=== PATIENT | female | born 2000 | race Caucasian/White ===

== ENCOUNTER 2024-02-17 10:15 | Outpatient (RCR) | payer OTHER, SELFPAY ==
[2024-02-10 08:35] VITALS: BP 124/68; PULSE 81; RESP 16; TEMP 35.3; BMI 38.4
--- NOTE | 2024-02-10 10:15 | PCM.WC.HP ---
History of Present Illness Date of Service: 02/10/24 Progress of Wound: Patient 1 month prior reports that she was bit by a spider while at work and 01/14/2024. Patient noticed increased swelling pain edema to the left forefoot region. Patient did not have any open wounds at this time. Patient has taken 2 courses of antibiotics. Patient notes significant improvement after completing 10-day course of Bactrim DS. Patient presents today for additional workup and evaluation. She denies any constitutional symptoms and notes that it is been improving at this time. [facility] Home Medications ?Medication ?Instructions ?Recorded ?Last Taken ?Type meloxicam 15 mg tablet 15 mg PO DAILY #30 tabs 02/10/24 Unknown Rx sulfamethoxazole 800 1 tab PO BID #14 tabs 02/10/24 Unknown Rx mg-trimethoprim 160 mg tablet (Bactrim DS) Social History (Reviewed 02/10/24 @ 10:[address] Zackery Gaines, [facility]) Smoking Status: Never smoker ROS Constitutional Constitutional: Denies body ache(s), change in weight or fever(s) Eyes Eyes: Denies acute decrease in peripheral vision, change in eye color or change in vision ENT HEENT: Denies abnormal hearing, bleeding gums or dysphagia Cardiovascular Cardiovascular: Denies abdominal bloating, abdominal edema or bluish discoloration of hand/feet Respiratory/Chest Respiratory/Chest: Denies change in mental status, change in phlegm color or difficulty clearing secretions Gastrointestinal Gastrointestinal: Denies anorexia, belching or coffee ground emesis Genitourinary Genitourinary: Denies abdominal discomfort, anuria or contractions Musculoskeletal Musculoskeletal: Denies arthralgias, atrophy or joint stiffness Vital Signs Vital Signs Vital Signs: 02/10/24 08:35 Temperature 95.5 F L Temperature Source Temporal Pulse Rate 81 Respiratory Rate 16 Blood Pressure 124/68 H Blood Pressure Mean 86 Blood Pressure Source Monitor Blood Pressure Position Semi-Fowlers Blood Pressure Location Left Arm Oxygen Delivery Method Room Air Weight Weight: 117.934 kg Body Mass Index (BMI) 38.4 Physical Exam Narrative Vascular: Dorsalis pedis posterior tibial pulses palpable 2 out of 4 to bilateral lower extremity. +1 pitting edema noted to left lower extremity. Focal swelling and erythema to left forefoot. Neurologic: Light touch protective sensation intact bilateral feet deep tendon reflexes normal to Achilles tendon bilaterally. No evidence of clonus or Babinski. Dermatologic: No evidence of wounds at this time there is focal erythema edema and warmth to the left second interspace with some skin exfoliation as demonstrated by scaling. No other signs of infection. Musculoskeletal: No gross deformities noted. Muscular strength full. No evidence DVT. Const alert and oriented x3 Debridement Note Debridement Note Post-Debridement Measurements and Additional Note: Post-Debridement Measurements/Treatment WC - Nurse 1 - General Ulcer Assessment Start: 02/10/24 08:35 Freq: Status: Active Protocol: DEZ Activity Type Activity Date Activity User E-sign Co-sign Detail Recorded Client Recorded Date Recorded By Document 02/10/24 08:35 KW l 02/10/24 08:50 KW 02/10/24 08:35 WC - Today's Visit Information Type of service Initial Visit Arrival Mode Ambulatory Accompanied by mother Patient Identification Verified (Name & Yes ) Height and Weight Height 5 ft 9 in Weight 117.934 kg Weight in Pounds 260.0 lbs Weight Measurement Method Estimated by Patient Body Mass Index (BMI) 38.4 BMI Classification Obese BSA - Fabian 2.31 Vital Signs Temperature (97.8 F-99.1 F) 95.5 F L Temperature Source Temporal Pulse Rate (60-100) 81 Pulse Location Monitor Respiratory Rate (12-18) 16 Respiratory rate source Observation Oxygen Delivery Method Room Air Blood Pressure (90/60-120/80) 124/68 H Blood Pressure Mean (mm Hg) 86 Source Monitor Position Semi-Fowlers Blood Pressure Location Left Arm History Since Last Visit- (Skip if this is Patient's initial visit) Left Footwear Regular Shoe Right Footwear Regular Shoe Pain Scale: 0-10 Numeric Is Patient Pain Free? No lt foot -Intensity 4 -Alleviating Factors/Interventions None Communication Assessment Preferred language Frisian Able to Read Yes Able to Write Yes Communication Tools None Caregiver Communication Skills No Impairment Impairment Right Hearing Abillity Normal Left Hearing Abillity Normal Visual Assistive Devices Glasses, Contacts Teaching Assessment Preferences Verbal,Written, Demonstration Barriers to Learning None Readiness To Learn Excellent Willingness to Engage in Self Management High Activies Readiness to Engage in Self Management High Activities Anxiety Level Calm Cooperation Cooperative Perception Coherent Interest in Health Problem Asks Questions Education Importance Acknowledges Need Does Patient Smoke tobacco or other Yes substances Smoking Status Never smoker Is Patient Diabetic No Functional Assessment Recent Decline in Ability to Perform Denies Any Declines Culture/Restoration/Charge Master Specialist Cultural/Restoration Needs that may affect No Treatment Plan Would you allow our hospital paraprofessional interpreter to No meet you for the purpose of spiritual/ emotional support? Charge Master Specialist to contact place of islam No WC - Nurse 1 - General Ulcer Measurement Start: 02/10/24 08:35 Freq: Status: Active Protocol: Activity Type Activity Date Activity User E-sign Co-sign Detail Recorded Client Recorded Date Recorded By Document 02/10/24 08:35 KW l 02/10/24 08:50 KW 02/10/24 08:35 Wound Center Nurse 1 Right Calf (cm) 46.5 Right Ankle (cm) 27 Left Calf (cm) 45 Left Ankle (cm) 26.7 WC - Nurse 2 - General Ulcer CM Notes Start: 02/10/24 08:35 Freq: Status: Active Protocol: Activity Type Activity Date Activity User E-sign Co-sign Detail Recorded Client Recorded Date Recorded By Document 02/10/24 09:21 JF 0000 02/10/24 09:22 JF 02/10/24 09:21 Pain Scale: 0-10 Numeric Is Patient Pain Free? Yes - Nurse 3 - General Ulcer D/C NN Start: 02/10/24 08:35 Freq: Status: Active Protocol: Activity Type Activity Date Activity User E-sign Co-sign Detail Recorded Client Recorded Date Recorded By Document 02/10/24 09:40 RB wound 02/10/24 09:41 RB 02/10/24 09:40 Wound Care Center Nurse 3 Left -Tubular Bandage Double Layer -Size of Tubigrip Used Size E -Size E ($) 4 Treatment Response Procedure Tolerated Well Pain Scale: 0-10 Numeric Is Patient Pain Free? Yes Teaching: Wound Center Compression Wraps & Stockings -Person Taught Patient -Teaching Method Discussion, Demonstration -Response to teaching Verbalize understanding WC - Visit Discharge Discharge Condition Stable Ambulatory Status Ambulatory Transportation Private Auto Medication Reconcilliation completed & No provided to patient/care provider Clinical Summary of Care Provided Yes Assessment/Plan Assessment/Plan (1) Cellulitis of left lower limb: CODE(S): L03.116 - Cellulitis of left lower limb PLAN: Exam performed Left foot cellulitis noted significantly improved likely secondary to spider bite. Continue Bactrim DS additional week. Rx for meloxicam to help with pain and swelling. Recommend Tubigrip to help manage edema as well. If no improvement next week consider MRI to rule out deep foreign body or deep abscess. Will request lab work and radiographs from [facility]. No weightbearing restrictions except for to tolerance follow-up in 1 week.
[2024-02-17 10:12] VITALS: BP 110/79; PULSE 92; RESP 18; TEMP 36.2; BMI 38.4
--- NOTE | 2024-02-17 10:38 | PCM.WC.PN ---
History of Present Illness Date of Service: 02/17/24 Progress of Wound: Patient 1 month prior reports that she was bit by a spider while at work and 01/14/2024. Patient noticed increased swelling pain edema to the left forefoot region. Patient did not have any open wounds at this time. Patient has taken 2 courses of antibiotics. Patient notes significant improvement after completing 10-day course of Bactrim DS. Patient presents today for additional workup and evaluation. She denies any constitutional symptoms and notes that it is been improving at this time. Objective Data Objective Data Vital Signs: Vital Signs Temp Pulse Resp BP O2 Del Method 97.1 F L 92 18 110/79 Room Air 02/17/24 10:12 02/17/24 10:12 02/17/24 10:12 02/17/24 10:12 02/17/24 10:12 Oxygen Delivery Method Room Air Weight: 117.934 kg Body Mass Index (BMI) 38.4 Physical Exam Narrative Vascular: Dorsalis pedis posterior tibial pulses palpable 2 out of 4 to bilateral lower extremity. +1 pitting edema noted to left lower extremity. Focal swelling and erythema to left forefoot. Neurologic: Light touch protective sensation intact bilateral feet deep tendon reflexes normal to Achilles tendon bilaterally. No evidence of clonus or Babinski. Dermatologic: No evidence of wounds at this time there is focal erythema edema and warmth to the left second interspace with some skin exfoliation as demonstrated by scaling. No other signs of infection. Musculoskeletal: No gross deformities noted. Muscular strength full. No evidence DVT. Const alert and oriented x3 Debridement Note Debridement Note Post-Debridement Measurements and Additional Note: Post-Debridement Measurements/Treatment - Nurse 1 - General Ulcer Assessment Start: 02/10/24 08:35 Freq: Status: Active Protocol: .LOWEXT Activity Type Activity Date Activity User E-sign Co-sign Detail Recorded Client Recorded Date Recorded By Document 02/10/24 08:35 KW l 02/10/24 08:50 KW Document 02/17/24 10:12 KW gj 02/17/24 10:15 KW 02/10/24 02/17/24 08:35 10:12 - Today's Visit Information Type of service Initial Visit Follow-up Visit (Physician/TRIMMER OPERATOR ) Arrival Mode Ambulatory Ambulatory Accompanied by mother Patient Identification Verified (Name & Yes Yes ) Height and Weight Height 5 ft 9 in Weight 117.934 kg Weight in Pounds 260.0 lbs Weight Measurement Method Estimated by Patient Body Mass Index (BMI) 38.4 38.4 BMI Classification Obese Obese BSA - Fabian 2.31 Vital Signs Temperature (97.8 F-99.1 F) 95.5 F L 97.1 F L Temperature Source Temporal Temporal Pulse Rate (60-100) 81 92 Pulse Location Monitor Monitor Respiratory Rate (12-18) 16 18 Respiratory rate source Observation Observation Oxygen Delivery Method Room Air Room Air Blood Pressure (90/60-120/80) 124/68 H 110/79 Blood Pressure Mean (mm Hg) 86 89 Source Monitor Monitor Position Semi-Fowlers Semi-Fowlers Blood Pressure Location Left Arm Left Arm History Since Last Visit- (Skip if this is Patient's initial visit) Have you changed medications since your No last visit? Any new allergies or adverse reactions No Had a fall/change in ADL's that may No increase risk of falls Signs or symptoms of abuse and/or No neglect since last visit Have you been in the hospital since your No last visit? Has dressing in place as prescribed Yes Has compression in place as prescribed No Has offloadiing in place as prescribed N/A Experienced any changes in pain level or No management Left Footwear Regular Shoe Regular Shoe Right Footwear Regular Shoe Regular Shoe Pain Scale: 0-10 Numeric Is Patient Pain Free? No Yes lt foot -Intensity 4 -Alleviating Factors/Interventions None Communication Assessment Preferred language Emirati Able to Read Yes Able to Write Yes Communication Tools None Caregiver Communication Skills No Impairment Impairment Right Hearing Abillity Normal Left Hearing Abillity Normal Visual Assistive Devices Glasses, Contacts Teaching Assessment Preferences Verbal,Written, Demonstration Barriers to Learning None Readiness To Learn Excellent Willingness to Engage in Self Management High Activies Readiness to Engage in Self Management High Activities Anxiety Level Calm Cooperation Cooperative Perception Coherent Interest in Health Problem Asks Questions Education Importance Acknowledges Need Does Patient Smoke tobacco or other Yes substances Smoking Status Never smoker Is Patient Diabetic No Functional Assessment Recent Decline in Ability to Perform Denies Any Declines Culture/Jehovah'S Witness/Sap Security Architect Cultural/Jehovah'S Witness Needs that may affect No Treatment Plan Would you allow our hospital division road supervisor to No meet you for the purpose of spiritual/ emotional support? Sap Security Architect to contact place of oriental orthodox No WC - Nurse 1 - General Ulcer Measurement Start: 02/10/24 08:35 Freq: Status: Active Protocol: Activity Type Activity Date Activity User E-sign Co-sign Detail Recorded Client Recorded Date Recorded By Document 02/10/24 08:35 KW l 02/10/24 08:50 KW Document 02/17/24 10:12 KW gj 02/17/24 10:15 KW 02/10/24 02/17/24 08:35 10:12 Wound Center Nurse 1 Right Calf (cm) 46.5 Right Ankle (cm) 27 Left Calf (cm) 45 45.7 Left Ankle (cm) 26.7 27 - Nurse 2 - General Ulcer CM Notes Start: 02/10/24 08:35 Freq: Status: Active Protocol: Activity Type Activity Date Activity User E-sign Co-sign Detail Recorded Client Recorded Date Recorded By Document 02/10/24 09:21 JF 0000 02/10/24 09:22 JF Document 02/17/24 10:25 JF 0000 02/17/24 10:27 JF 02/10/24 02/17/24 09:21 10:25 Pain Scale: 0-10 Numeric Is Patient Pain Free? Yes Yes - Nurse 3 - General Ulcer D/C NN Start: 02/10/24 08:35 Freq: Status: Active Protocol: Activity Type Activity Date Activity User E-sign Co-sign Detail Recorded Client Recorded Date Recorded By Document 02/10/24 09:40 RB wound 02/10/24 09:41 RB 02/10/24 09:40 Wound Care Center Nurse 3 Left -Tubular Bandage Double Layer -Size of Tubigrip Used Size E -Size E ($) 4 Treatment Response Procedure Tolerated Well Pain Scale: 0-10 Numeric Is Patient Pain Free? Yes Teaching: Wound Center Compression Wraps & Stockings -Person Taught Patient -Teaching Method Discussion, Demonstration -Response to teaching Verbalize understanding WC - Visit Discharge Discharge Condition Stable Ambulatory Status Ambulatory Transportation Private Auto Medication Reconcilliation completed & No provided to patient/care provider Clinical Summary of Care Provided Yes Assessment/Plan Assessment/Plan (1) Cellulitis of left lower limb: CODE(S): L03.116 - Cellulitis of left lower limb PLAN: Exam performed Left foot cellulitis noted significantly worsened today concern for deep abscess left forefoot MRI and ultrasound ordered to rule out deep infection ordered inflammatory lab work Continue Bactrim DS additional week. dispensed surgical shoe for heel weightbearing follow up in 1 week
--- NOTE | 2024-02-17 11:36 | RAD_ITS ---
INDICATION: CELLULITIS EXAMINATION/TECHNIQUE: X-RAY - LEFT XR Foot Min 3 Views 3 VIEWS COMPARISON: No relevant prior comparison study available FINDINGS: SOFT TISSUES: No soft tissue swelling or gas. No radiopaque foreign body. BONES/JOINTS: No acute fracture or subluxation.. Normal alignment. Preservation of the joint space.. No sclerotic or destructive changes observed. RAD/Foot min 3 Views IMPRESSION: Unremarkable examination. Electronically Signed: Kashif Lockhart MD at 11:53 EDT ,
[2024-02-17 11:51] LABS: Erythrocyte Sedimentation Rate 11 mm/hr (0-30)
[2024-02-17 11:53] LABS: Hematocrit 33.3 % (37-47); Hemoglobin 10.9 g/dL (12.0-15.0); Mean Corp Hgb Conc 32.7 g/dL (32-36); Mean Corpuscular Hgb 27.3 pg (27.0-32.0); Mean Corpuscular Volume 83.5 fL (81-99); Mean Platelet Vol. 10.9 fl (6.2-12.0); Platelet Count 217 K/mm3 (150-450); RBC Distribution Width SD 39.4 fl (35.1-43.9); Red Blood Count 3.99 M/mm3 (4.2-5.4); White Blood Count 5.6 K/mm3 (4.4-11.0)
[2024-02-17 12:24] LABS: Anion Gap 5 (5-15); BUN 19 mg/dL (7-18); BUN/Creat Ratio 20.5 RATIO (10-20); CRP 7.16 mg/L (0.0-3.0); Chloride 107 mmol/L (98-107); Creatinine, Serum 0.93 mg/dL (0.55-1.02); EST Glomerular Filtration Rate 81 mL/min (>60); Est Glom Filt Rate - Afr Amer 98 mL/min (>60); Estimated Creatinine Clearance 131.26 ml/min; Glucose 95 mg/dL (74-106); Potassium 4.5 mmol/L (3.5-5.1); Rheumatoid Factor < 10.0 IU/mL (<15); Sodium Level 139 mmol/L (136-145)
[2024-02-18 10:09] LABS: ANTINUCLEAR ANTIBODIES DIRECT Negative (Negative)
--- NOTE | 2024-02-18 10:48 | WC ---
PHOTO (I) 2ND AND THIRD TOE 02/10/24
--- NOTE | 2024-02-20 08:56 | WC ---
PHOTO 02/17/24 LEFT FOOT
== END 2024-02-18 23:59 | disposition home or self-care (01) ==
LOC: WC 10:15
PROVIDERS: PCP Nurse Practitioner Family; Referring Provider Nurse Practitioner Family; Visit Provider Podiatrist
DX: L03.116 Cellulitis of left lower limb (principal)
CPT/HCPCS: 36415; 73630; 80048; 85027; 85652; 86038; 86140; 86431; 99203; 99213; G0463

== ENCOUNTER → 2024-03-01 | Outpatient (CLI) | payer OTHER, SELFPAY ==
--- NOTE | 2024-03-01 08:09 | US_ITS ---
STUDY: SUPERFICIAL ULTRASOUND - LEFT FOOT REASON FOR EXAM: Female, 23 years old. CELLULITIS LL LIMB TECHNIQUE: A superficial ultrasound was performed with real-time and static tapia-scale imaging. COMPARISON: None. FINDINGS: Multiple longitudinal and transverse ultrasound images of the dorsum of the foot do not demonstrate a discrete solid or cystic mass. US/Ext Non Vasc Limited/Soft Tiss IMPRESSION: Normal left foot. Electronically Signed: Con Salazar MD at 10:16 EDT ,
== END | disposition home or self-care (01) ==
PROVIDERS: PCP Nurse Practitioner Family; Referring Provider Podiatrist; Visit Provider Podiatrist
DX: L03.116 Cellulitis of left lower limb (principal)
CPT/HCPCS: 76882

== ENCOUNTER 2024-03-02 08:00 | Outpatient (RCR) | payer OTHER, SELFPAY ==
[2024-02-19 00:54] VITALS: BP 110/79; PULSE 92; RESP 18; TEMP 36.2; BMI 38.4
[2024-02-24 08:15] VITALS: BP 107/66; PULSE 73; RESP 18; TEMP 35.8; BMI 38.4
--- NOTE | 2024-02-24 09:42 | WC ---
PHOTO 02/24/24 LEFT 2ND AND 3RD TOES
--- NOTE | 2024-02-24 10:32 | PCM.WC.PN ---
History of Present Illness Date of Service: 02/24/24 Chief Complaint: Left second toe pain and swelling Subjective Subjective Patient 1 month prior reports that she was bit by a spider while at work and 01/14/2024. Patient noticed increased swelling pain edema to the left forefoot region. Patient did not have any open wounds at this time. Patient has taken 2 courses of antibiotics. Patient notes significant improvement after completing 10-day course of Bactrim DS. Patient presents today for additional workup and evaluation. She denies any constitutional symptoms and notes that it is been improving at this time. Courtesy visit for Dr. Gaines. Today there is minimal erythema. There continues to be some slight swelling. 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 She is still waiting for ultrasound and MRI to be approved by insurance. Her biggest concern right now is that she needs to return to college in the next couple weeks and she would like to have the testing done before then. Objective Data Objective Data Vital Signs: Vital Signs Temp Pulse Resp BP O2 Del Method 96.4 F L 73 18 107/66 Room Air 02/24/24 08:15 02/24/24 08:15 02/24/24 08:15 02/24/24 08:15 02/24/24 08:15 Oxygen Delivery Method Room Air Weight: 260 lb Body Mass Index (BMI) 38.4 Lab / Micro Data Attestation: I reviewed the patient's lab results. Charges/Coding Visit Charges Office Visits / Consults: 38823 OV L3 Est 20min Physical Exam Const alert and oriented x3 HEENT normocephalic Head and Scalp: atraumatic Eyes General Eye: normal appearance of both eyes Resp normal respiratory effort and no use of accessory muscles Effort and Inspection: able to speak in complete sentences Cardio regular rate and regular rhythm Extremity normal capillary refill Extremity Narrative: +2 pedal pulses palpable on the left. Skin Skin Narrative: No wounds present. Left second toe continues to have some swelling. Erythema is almost completely resolved. Neuro CN's II-XII intact bilaterally Debridement Note Debridement Note No debridement was completed: No debridement was completed today Post-Debridement Measurements and Additional Note: Post-Debridement Measurements/Treatment WC - Nurse 1 - General Ulcer Assessment Start: 02/24/24 08:15 Freq: Status: Active Protocol: WC.LOWEXT Activity Type Activity Date Activity User E-sign Co-sign Detail Recorded Client Recorded Date Recorded By Document 02/24/24 08:15 KW kl 02/24/24 08:18 KW 02/24/24 08:15 - Today's Visit Information Type of service Follow-up Visit (Physician/SUPERVISOR DISPLAY FABRICATION ) Arrival Mode Ambulatory Accompanied by mother Patient Identification Verified (Name & Yes ) Height and Weight Body Mass Index (BMI) 38.4 BMI Classification Obese Vital Signs Temperature (97.8 F-99.1 F) 96.4 F L Temperature Source Temporal Pulse Rate (60-100) 73 Pulse Location Monitor Respiratory Rate (12-18) 18 Respiratory rate source Observation Oxygen Delivery Method Room Air Blood Pressure (90/60-120/80) 107/66 Blood Pressure Mean (mm Hg) 79 Source Monitor Position Sitting Blood Pressure Location Left Arm History Since Last Visit- (Skip if this is Patient's initial visit) Have you changed medications since your No last visit? Any new allergies or adverse reactions No Had a fall/change in ADL's that may No increase risk of falls Signs or symptoms of abuse and/or No neglect since last visit Have you been in the hospital since your No last visit? Has dressing in place as prescribed Yes Has compression in place as prescribed No Has offloadiing in place as prescribed N/A Experienced any changes in pain level or No management Left Footwear Regular Shoe Right Footwear Regular Shoe Pain Scale: 0-10 Numeric Is Patient Pain Free? Yes - Nurse 2 - General Ulcer CM Notes Start: 02/24/24 08:15 Freq: Status: Active Protocol: Activity Type Activity Date Activity User E-sign Co-sign Detail Recorded Client Recorded Date Recorded By Document 02/24/24 08:30 JF 0000 02/24/24 08:30 JF 02/24/24 08:30 Is Patient Pain Free? Yes - Nurse 3 - General Ulcer D/C NN Start: 02/24/24 08:15 Freq: Status: Active Protocol: Activity Type Activity Date Activity User E-sign Co-sign Detail Recorded Client Recorded Date Recorded By Document 02/24/24 08:34 JF 0000 02/24/24 08:35 JF 02/24/24 08:34 Wound Care Center Nurse 3 Left -Tubular Bandage Single Layer -Size of Tubigrip Used Size E -Size E ($) 0 Pain Scale: 0-10 Numeric Is Patient Pain Free? Yes Teaching: Wound Center Control Swelling with Leg Elevation -Person Taught Patient -Teaching Method Discussion, Demonstration -Response to teaching Return Demonstration, Verbalize Understanding Compression Wraps & Stockings -Person Taught Patient -Teaching Method Discussion, Demonstration -Response to teaching Return Demonstration, Verbalize Understanding WC - Visit Discharge Discharge Condition Stable Ambulatory Status Ambulatory Transportation Private Auto Accompanied by mother Medication Reconcilliation completed & Yes provided to patient/care provider Clinical Summary of Care Provided Yes Assessment/Plan Assessment/Plan (1) Cellulitis of left lower limb: CODE(S): L03.116 - Cellulitis of left lower limb PLAN: This was a courtesy visit for Dr. Gaines today. Left foot cellulitis has improved. She continues to have mild swelling. Erythema is almost completely resolved. Dr. Gaines has concern for deep abscess left forefoot MRI and ultrasound ordered to rule out deep infection. Still waiting for approval for insurance. Her lab work was reviewed with her. Her C-reactive protein is 7.16. WBC is 5.6. Rheumatoid factor is less than 10, OBEY is negative. She has almost completed her Bactrim DS. Encouraged her to wear Tubigrip for compression. 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 She has a surgical shoe for heel weightbearing which she is not wearing. She has been wearing crocs. follow up in [address] Gaines.
[2024-03-02 08:18] VITALS: BP 114/58; PULSE 71; RESP 18; TEMP 36.1; BMI 38.4
--- NOTE | 2024-03-02 09:10 | PCM.WC.PN ---
History of Present Illness Date of Service: 03/02/24 Chief Complaint: Left second toe pain and swelling Progress of Wound: Improved swelling pain and redness to left forefoot. Patient here for ultrasound results. Patient no longer on antibiotics. Objective Data Objective Data Vital Signs: Vital Signs Temp Pulse Resp BP O2 Del Method 97 F L 71 18 114/58 L Room Air 03/02/24 08:18 03/02/24 08:18 03/02/24 08:18 03/02/24 08:18 03/02/24 08:18 Oxygen Delivery Method Room Air Weight: 117.934 kg Body Mass Index (BMI) 38.4 Physical Exam Narrative Vascular: Dorsalis pedis posterior tibial pulses palpable 2 out of 4 to bilateral lower extremity. +1 pitting edema noted to left lower extremity. Focal swelling and erythema to left forefoot. Neurologic: Light touch protective sensation intact bilateral feet deep tendon reflexes normal to Achilles tendon bilaterally. No evidence of clonus or Babinski. Dermatologic: No evidence of wounds at this time there is focal erythema edema and warmth to the left second interspace with some skin exfoliation as demonstrated by scaling. No other signs of infection. Musculoskeletal: No gross deformities noted. Muscular strength full. No evidence DVT. Const alert and oriented x3 Debridement Note Debridement Note Post-Debridement Measurements and Additional Note: Post-Debridement Measurements/Treatment - Nurse 1 - General Ulcer Assessment Start: 02/24/24 08:15 Freq: Status: Active Protocol: .LOWEXT Activity Type Activity Date Activity User E-sign Co-sign Detail Recorded Client Recorded Date Recorded By Document 02/24/24 08:15 KW kl 02/24/24 08:18 KW Document 03/02/24 08:18 [place] [id number] 03/02/24 08:20 MT 02/24/24 03/02/24 08:15 08:18 - Today's Visit Information Type of service Follow-up Visit Follow-up Visit (Physician/SWITCHBOARD RECEPTIONIST (Physician/SWITCHBOARD RECEPTIONIST ) ) Arrival Mode Ambulatory Ambulatory Accompanied by mother mom Patient Identification Verified (Name & Yes Yes ) Height and Weight Body Mass Index (BMI) 38.4 38.4 BMI Classification Obese Obese Vital Signs Temperature (97.8 F-99.1 F) 96.4 F L 97 F L Temperature Source Temporal Temporal Pulse Rate (60-100) 73 71 Pulse Location Monitor Monitor Respiratory Rate (12-18) 18 18 Respiratory rate source Observation Observation Oxygen Delivery Method Room Air Room Air Blood Pressure (90/60-120/80) 107/66 114/58 L Blood Pressure Mean (mm Hg) 79 76 Source Monitor Monitor Position Sitting Sitting Blood Pressure Location Left Arm Left Arm History Since Last Visit- (Skip if this is Patient's initial visit) Have you changed medications since your No last visit? Any new allergies or adverse reactions No Had a fall/change in ADL's that may No increase risk of falls Signs or symptoms of abuse and/or No neglect since last visit Have you been in the hospital since your No last visit? Has dressing in place as prescribed Yes Has compression in place as prescribed No Has offloadiing in place as prescribed N/A Experienced any changes in pain level or No management Left Footwear Regular Shoe Regular Shoe Right Footwear Regular Shoe Regular Shoe Pain Scale: 0-10 Numeric Is Patient Pain Free? Yes Yes - Nurse 1 - General Ulcer Measurement Start: 02/24/24 08:15 Freq: Status: Active Protocol: Activity Type Activity Date Activity User E-sign Co-sign Detail Recorded Client Recorded Date Recorded By Document 03/02/24 08:18 MT [id number] 03/02/24 08:20 MT 03/02/24 08:18 Wound Center Nurse 1 Right Calf (cm) 46 Right Ankle (cm) 25 Left Calf (cm) 45 Left Ankle (cm) 26 WC - Nurse 2 - General Ulcer CM Notes Start: 02/24/24 08:15 Freq: Status: Active Protocol: Activity Type Activity Date Activity User E-sign Co-sign Detail Recorded Client Recorded Date Recorded By Document 02/24/24 08:30 JF 0000 02/24/24 08:30 JF Document 03/02/24 08:33 JF 0000 03/02/24 08:34 JF 02/24/24 03/02/24 08:30 08:33 Pain Scale: 0-10 Numeric Is Patient Pain Free? Yes Yes - Nurse 3 - General Ulcer D/C NN Start: 02/24/24 08:15 Freq: Status: Active Protocol: Activity Type Activity Date Activity User E-sign Co-sign Detail Recorded Client Recorded Date Recorded By Document 02/24/24 08:34 JF 0000 02/24/24 08:35 JF Document 03/02/24 08:34 JF 0000 03/02/24 08:35 JF 02/24/24 03/02/24 08:34 08:34 Wound Care Center Nurse 3 Left -Tubular Bandage Single Layer -Size of Tubigrip Used Size E -Size E ($) 0 Pain Scale: 0-10 Numeric Is Patient Pain Free? Yes Yes Teaching: Wound Center Control Swelling with Leg Elevation -Person Taught Patient -Teaching Method Discussion, Demonstration -Response to teaching Return Demonstration, Verbalize Understanding Compression Wraps & Stockings -Person Taught Patient -Teaching Method Discussion, Demonstration -Response to teaching Return Demonstration, Verbalize Understanding WC - Visit Discharge Discharge Condition Stable Stable Ambulatory Status Ambulatory Ambulatory Transportation Private Auto Private Auto Accompanied by mother Medication Reconcilliation completed & Yes Yes provided to patient/care provider Clinical Summary of Care Provided Yes Yes Notes: Patient has her own compression stockings at home. Redness and swelling improving. Assessment/Plan Assessment/Plan (1) Cellulitis of left lower limb: CODE(S): L03.116 - Cellulitis of left lower limb PLAN: Exam performed. Cellulitis improved to left forefoot. Ultrasound negative per my personal review awaiting radiology review. MRI scheduled for 03/13/2024. Will review results ensure no deep abscess. No additional antibiotics indicated at this time. Recommend continue compression elevation. Follow-up for MRI results.
== END 2024-03-20 23:59 | disposition home or self-care (01) ==
LOC: WC 08:00
PROVIDERS: PCP Nurse Practitioner Family; Referring Provider Nurse Practitioner Family; Visit Provider Podiatrist
DX: L03.116 Cellulitis of left lower limb (principal)
CPT/HCPCS: 99213; G0463

== ENCOUNTER → 2024-03-13 | Outpatient (CLI) | payer OTHER, SELFPAY ==
--- NOTE | 2024-03-13 08:01 | MRI_ITS ---
STUDY: MRI LEFT FOREFOOT WITHOUT CONTRAST REASON FOR EXAM: Female, 23 years old. FOREFOOT CELLULITIS SPIDER BITE 2 MONTHS AGO, TOP OF FOOT @ BASE OF 2ND / 3RD PHALANX TECHNIQUE: Standardized fat and water weighted pulse sequences were obtained in all 3 orthogonal planes. COMPARISON: None. FINDINGS: Normal metatarsophalangeal joint of the hallux. Normal tibial and fibular sesamoids, with normal sesamoids-first metatarsal articulations. Normal interphalangeal joint of the hallux. Normal proximal and distal phalanges of the great toe. Normal medial and lateral heads of the flexor hallucis brevis tendons. Normal flexor and extensor hallucis longus tendons. Normal second through fifth metatarsophalangeal (MTP) joints. Normal interphalangeal joints of the second through fifth toes. Normal proximal, middle and distal phalanges of the second through fifth toes. There is mild first and third intermetatarsal space bursitis. Normal flexor and extensor tendons of the second through fifth toes. Normal visualized metatarsi. Normal intrinsic muscles of the forefoot. There is mild subcutaneous soft tissue edema along the dorsum of the forefoot, most pronounced over the second and third digits. There is no discrete fluid collection or drainable abscess. MRI/Lower Ext/No Jt/w/o IMPRESSION: Mild subcutaneous soft tissue edema along the dorsum of the forefoot, most pronounced over the second and third digits. No discrete fluid collection or drainable abscess. Mild first and third intermetatarsal space bursitis. Electronically Signed: Gregory Sandoval MD at 9:17 EDT ,
== END | disposition home or self-care (01) ==
LOC: MRI 07:58
PROVIDERS: PCP Nurse Practitioner Family; Referring Provider Podiatrist; Visit Provider Podiatrist
DX: L03.116 Cellulitis of left lower limb (principal)
CPT/HCPCS: 73718